=== PATIENT | male | born 1980 | race Caucasian/White ===

== ENCOUNTER 2023-08-08 12:45 | Emergency (ER) | payer MEDICARE, MEDICAID ==
[~2023-08-08] VITALS: Ht 172.7 cm; Wt 64.0 kg
[2023-08-08 12:47] VITALS: O2SAT 99
[2023-08-08] MEDS: DEXTROSE 50% WATER 50ML SYRINGE IV ONE (13:19)
[2023-08-08] MEDS ORDERED: DEXTROSE 50% WATER 50ML SYRINGE IV NR (13:19)
[2023-08-08 14:12] LABS: BASOPHILS % 0.9 % (0.0-2.0); EOSINOPHILS % 5.8 % (0.0-5.0); HEMATOCRIT. 28.3 % (42.0-52.0); HEMOGLOBIN. 9.4 g/dL (14.0-18.0); LYMPHOCYTES % 12.3 % (20.0-50.0); MEAN CORPUSCULAR HEMOGLOBIN 27.9 pg (28.0-32.0); MEAN CORPUSCULAR HGB CONC 33.3 g/dL (31.0-37.0); MEAN CORPUSCULAR VOLUME 83.7 fL (80.0-94.0); MEAN PLATELET VOLUME 8.5 fl (7.4-10.4); MONOCYTES % 7.2 % (2.0-8.0); NEUTROPHILS % 73.8 % (40.0-76.0); PLATELET 224 x1000/uL (130-400); RED BLOOD CELL COUNT 3.38 mill/uL (4.7-6.1); RED CELL DISTRIBUTION WIDTH 21.9 % (11.6-14.6); WHITE BLOOD COUNT 6.9 x1000/uL (4.5-11.0)
[2023-08-08 14:26] LABS: CHLORIDE 98 mEq/L (98-107); POTASSIUM 4.5 mEq/L (3.5-5.1); SODIUM 138 mEq/L (136-145)
[2023-08-08 14:28] LABS: CALCIUM 8.3 mg/dL (8.7-10.4); CARBON DIOXIDE 28 mEq/L (21-32)
[2023-08-08 14:33] LABS: GLUCOSE 69 mg/dL (70-105); TROPONIN I HIGH SENSITIVITY 16 ng/L (3.0-53); UREA NITROGEN BLOOD 56 mg/dL (9-23)
[2023-08-08 14:36] LABS: CREATININE 7.7 mg/dL (0.6-1.3)
[2023-08-08] MEDS ORDERED: DEXTROSE 10% WATER 500 ML IV ONE (14:45)
[2023-08-08] MEDS: DEXTROSE 10% WATER 500 ML IV ONE (15:00)
[2023-08-08 16:17] LABS: TROPONIN I HIGH SENSITIVITY 19 ng/L (3.0-53)
[2023-08-08 17:30] VITALS: BP 140/90; PULSE 70; RESP 16; TEMP 97.6
[2023-08-09] MEDS ORDERED: DEXTROSE 50% WATER 50ML SYRINGE IV ONE (14:15)
== END 2023-08-08 17:49 | disposition left against medical advice (07) ==
LOC: ER 14:06 → EDBEDREQ 16:50 → EDBEDREQTM 16:50 → CANBEDREQ 17:48 → ER 17:49
DX: I12.0 Hypertensive chronic kidney disease with stage 5 chronic kidney disease or end stage renal disease (principal); E11.22 Type 2 diabetes mellitus with diabetic chronic kidney disease; N18.6 End stage renal disease; N17.9 Acute kidney failure, unspecified; Z98.890 Other specified postprocedural states
CPT/HCPCS: 36415; 71045; 80048; 82962; 83880; 84484; 85025; 93005; 96365; 96375; 99285